=== PATIENT | male | born 1990 | race Caucasian/White ===

== ENCOUNTER 2019-07-30 18:10 | Inpatient (IN) | payer OTHER ==
[~2019-07-30] VITALS: Ht 190.5 cm; Wt 168.3 kg
[2019-07-30 18:12] VITALS: BP 163/108
[2019-07-30] MEDS ORDERED: LISINOPRIL2.5 MG PO (18:33)
[2019-07-30 18:40] LABS: URINE BILIRUBIN NEGATIVE (Negative); URINE BLOOD NEGATIVE (Negative); URINE CLARITY CLEAR; URINE COLOR YELLOW; URINE GLUCOSE-RANDOM* NEGATIVE (Negative); URINE KETONES TRACE (Negative); URINE LEUKOCYTES-REFLEX NEGATIVE (Negative); URINE NITRITE-REFLEX NEGATIVE (Negative); URINE PROTEIN (DIPSTICK) NEGATIVE (Negative); URINE SPECIFIC GRAVITY 1.015 (1.005-1.035)
[2019-07-30 18:56] LABS: HEMATOCRIT 48.8 % (42.0-52.0); HEMOGLOBIN 16.8 gm/dL (14.0-18.0); MCH 33.8 pg (26.0-34.0); MCHC 34.4 g/dL (28.0-37.0); MCV 98.3 fL (80.0-100.0); RBC 4.96 mil/uL (4.50-6.00); RDW 13.5 % (10.5-14.5); WBC 10.9 thou/uL (4.0-11.0)
[2019-07-30 19:13] LABS: CALCIUM 9.4 mg/dL (8.5-10.1); CREATININE 0.7 mg/dL (0.7-1.3); POTASSIUM 4.5 mmol/L (3.5-5.1)
[2019-07-30 19:17] LABS: ALBUMIN 3.9 g/dL (3.4-5.0); TOTAL BILIRUBIN 0.8 mg/dL (0.2-1.0); TOTAL PROTEIN 7.4 g/dL (6.4-8.2)
[2019-07-30 21:37] VITALS: BP 135/70
--- NOTE | 2019-07-30 21:37 | NUR ---
HANDOFF SENT TO CCU
[2019-07-30 22:29] VITALS: BP 135/70
[2019-07-30 22:52] VITALS: BP 144/75
[2019-07-30 22:57] VITALS: BP 144/75
[2019-07-31 04:30] VITALS: BP 147/89
[2019-07-31 04:38] LABS: HEMATOCRIT 41.5 % (42.0-52.0); MCH 34.6 pg (26.0-34.0); MCHC 34.8 g/dL (28.0-37.0); MCV 99.3 fL (80.0-100.0); RBC 4.18 mil/uL (4.50-6.00); RDW 13.5 % (10.5-14.5); WBC 9.4 thou/uL (4.0-11.0)
[2019-07-31 04:40] LABS: HEMOGLOBIN 14.5 gm/dL (14.0-18.0)
[2019-07-31 04:46] LABS: CALCIUM 7.7 mg/dL (8.5-10.1); CREATININE 0.7 mg/dL (0.7-1.3); MAGNESIUM 1.3 mg/dL (1.8-2.4); POTASSIUM 3.5 mmol/L (3.5-5.1)
[2019-07-31 04:54] LABS: ALBUMIN 3.1 g/dL (3.4-5.0); DIRECT BILIRUBIN 0.2 mg/dL (<0.1-0.2); TOTAL BILIRUBIN 0.8 mg/dL (0.2-1.0); TOTAL PROTEIN 5.4 g/dL (6.4-8.2)
[2019-07-31 05:56] LABS: CHOLESTEROL 156 mg/dL (<200); HDL CHOLESTEROL 47 mg/dL (>40); LDL CHOLESTEROL 93 mg/dL (<100); TC:HDL 3.3 Ratio (Not establshd); TRIGLYCERIDE 81 mg/dL (<150); VLDL 16 mg/dL (<40)
[2019-07-31 05:57] LABS: SERUM ASSESSMENT Clear
--- NOTE | 2019-07-31 06:46 | NUR ---
ASSUME CARE 2245. PT BROUGHT TO UNIT BY FAISAL. PT/VITALS STABLE CHRONIC BACK PAIN NOTED WITH MORPHINE FOR PAIN. NO WITHDRAWAL SYMPTOMS MOTED. PT IS A/O X 4 AND ANSWERS QUESTIONS APPROPRIATELY. TOLERATES ACTIVITIES WELL. PT TOLERATES ACTIVITY WELL. ASSESSMENT CHARTED. PROGRESSING WELL WITH POC. PLAN IS TO HYDRATE AND MONITOR FOR WITHDRAWALS. REPLACE ELECTROLYTES AND MANAGE PAIN. WILL CONITUNE TO MONITOR AND FOLLOW WIHT POC. NPO FOR NOW
[2019-07-31 07:21] VITALS: BP 143/80
[2019-07-31 11:59] VITALS: BP 158/87
--- NOTE | 2019-07-31 12:06 | HC ---
[facility] [place] [address] CONSULTATION Name: GUERRERO CRAIN Room #: 204-P ADM IN M.R.#: [id number] Admission: 07/30/19 Attend Phys: Edel Chatman MD Discharge: Date of : 89 Report #: [id number] THIS REPORT FOR: cc: BRANDON - No family physician/PCP BRANDON - No family physician/PCP Chi Braun MD ~ CC: Edel Chatman [facility] physician/PCP GI CONSULTATION HISTORY OF PRESENT ILLNESS: The patient is a very pleasant 29-year-old male who I have been asked to see for further evaluation of pancreatitis. He claims that he had developed significant epigastric and right upper quadrant abdominal pain yesterday, which became unrelenting and progressive. He presented to the Emergency Department with evidence of acute pancreatitis with a lipase of 2785 and significant findings on CT scan as mentioned below. The patient admits to significant alcohol consumption as well as substance abuse well detailed in his admission H and P. PAST MEDICAL HISTORY: Notable for hypertension and tobaccoism, otherwise. FAMILY HISTORY: Otherwise, noncontributory. REVIEW OF SYSTEMS: Negative for weight loss, weakness or fatigue. He denies head, eyes, ears, nose or throat complaints. Denies chest pain, chest palpitation, chest pressure, cough, shortness of breath, wheezing, genitourinary, musculoskeletal or neuropsychiatric complaints. MEDICATION: List is reviewed. PHYSICAL EXAMINATION: GENERAL: The patient is afebrile. VITAL SIGNS: Stable. HEENT: Nonicteric. NECK: No JVD, thyromegaly or bruits. CARDIOVASCULAR: Regular. LUNGS: Clear. ABDOMEN: Soft. He has got right upper quadrant tenderness and some rebound. No stigmata of chronic liver disease. No abnormal masses or bruits. EXTREMITIES: No clubbing, cyanosis or edema. NEUROLOGIC: Grossly intact. RECTAL: Deferred. PERTINENT LABORATORY DATA: Include platelet count 169, white count 9.4, hemoglobin 14.5. Serum chemistry notable for potassium 3.5. ALT 123, AST 61, total bilirubin 0.8. Calcium 7.7, magnesium 1.3, albumin 3.1, total protein [address] [address] CONSULTATION Name: GUERRERO CRAIN FABIAN Room #: 204-P ADM IN .R.#: [id number] Admission: 07/30/19 Attend Phys: Edel Chatman MD Discharge: Date of : 89 Report #: [id number] 5.4. Lipase today 1992. CT scan showing moderate inflammation adjacent to the pancreatic head and proximal duodenum, fluid and edema tracking caudally into the right retroperitoneum. No evidence of necrotic pancreatitis, mild diverticulosis without evidence of diverticulitis. ASSESSMENT: In summary, the patient presents with alcohol-induced acute pancreatitis. It appears that there is no significant complication to the state with a normal vascular bed to the pancreas without evidence of necrotic pancreatitis. He does have significant electrolyte disturbances including hypocalcemia and hypomagnesemia, which should be corrected. From a nutritional standpoint, it appears that he may be deficient as well secondary to substance abuse. I had a long conversation with the patient about the Ins and Outs of alcohol dependence and drug abuse and the durable effects of detox, rehabilitation, and AA. I have also discussed with him the management of acute pancreatitis, which includes bowel rest as well as analgesia. I would prefer Toradol dose and narcotic p.r.n. We will again repeat him once his pain improves and his lipase diminishes. Of course, obese people have higher risk of complications from pancreatitis would have to keep a good eye on him in this regard. He is dedicated to changing his behavior in his life around, especially from an alcohol standpoint and substance abuse standpoint as we discussed. We will follow concurrently. I appreciate the opportunity to participate in the care of this nice young man. <ELECTRONICALLY SIGNED> By: Chi Braun MD 07/31/19 1206 [id number] Chi Braun MD /nt
[2019-07-31 15:44] VITALS: BP 138/82
--- NOTE | 2019-07-31 17:37 | NUR ---
ASSUMED CARE AT SHIFT CHANGE, ALERT AND ORIENTED X4. ASSESSMENT AND CIWA CHARTED. VSS AND DOCUMENTED BP 138-154/80-87. MEDICATED FOR ABD PAIN INDICATED, AND TOLERATING ICE CHIPS WELL. AND WILL CONTINUE WITH POC.
[2019-07-31 19:45] VITALS: BP 153/79
[2019-08-01 00:09] LABS: GLYCOHEMOGLOBIN (HGB A1C) 5.3 % (4.8-5.6)
[2019-08-01 04:45] VITALS: BP 164/68
--- NOTE | 2019-08-01 05:31 | NUR ---
ASSUME CARE 1900. PT/VITALS STABLE. CONSISTENT RUQ ABDOMINAL PAIN INDICATED. TORADOL AND MORPHINE FOR PAIN RELIEF. TOLERATES ACTIVITY WELL. UPAD BRIDGET. SR ON MONITOR. PT STEADY WITH NO WITHDRAWALS NOTED. PT STILL NPO WITH SIPS OF WATER. ASSESMENTS CHARTED. PROGRESSING WELL WITH POC. PLAN IS POSSIBLE DISCHARGE WITHIN 1-2 DAYS. WILL BENEFIT FROM PSYCH CONSULT. WILL CONTINUE TO MONITOR AND FOLLOW WI POC
[2019-08-01 07:44] VITALS: BP 119/65
[2019-08-01 12:00] VITALS: BP 142/77
[2019-08-01 13:24] LABS: HEMATOCRIT 39.7 % (42.0-52.0); HEMOGLOBIN 14.1 gm/dL (14.0-18.0); MCH 34.6 pg (26.0-34.0); MCHC 35.6 g/dL (28.0-37.0); MCV 97.2 fL (80.0-100.0); RBC 4.09 mil/uL (4.50-6.00); RDW 13.2 % (10.5-14.5); WBC 8.3 thou/uL (4.0-11.0)
--- NOTE | 2019-08-01 13:30 | NUR ---
ASSESSMENT DOCUMENTED AND VSS. CONSISTENT ABD PAIN, MEDICATED INDICATED. SR AND ST W/ACTIVITIES, AND OTHER VSS. CLEAR LIQUID DIET TODAY AND PATIENT TOLERATED DIET WELL. PROGRESSING TOWARDS GOAL AND WILL CONTINUE WITH POC.
[2019-08-01 13:40] LABS: ALBUMIN 2.9 g/dL (3.4-5.0); CALCIUM 8.2 mg/dL (8.5-10.1); CREATININE 0.8 mg/dL (0.7-1.3); TOTAL BILIRUBIN 1.4 mg/dL (0.2-1.0)
[2019-08-01 13:42] LABS: POTASSIUM 4.5 mmol/L (3.5-5.1)
[2019-08-01 16:45] VITALS: BP 144/81
[2019-08-01 19:43] VITALS: BP 140/76
[2019-08-02 04:27] VITALS: BP 146/77
--- NOTE | 2019-08-02 06:32 | NUR ---
ASSUME CARE 1900. PT/VITALSS TABLE. NO SIGNS OF WITHDAWALS NOTED. NO DISTRESS NOTED. CONSISTENT RUQ ABDO PAIN/MWDICAED FOR RELIEF NEEDED. TOLERATES ACTIVITY WELL. ASSESSMENT CHARTED.PROGRESSING WELL WITH POC. SR ON MONITOR. PLAN IS A POSSIBLE DISCHARGE TODAY. WOULD BENEFIT FROM A PSYCH REFERRAL. WILL CONTINUE TO MONITOR AND FOLLOW WITH POC
[2019-08-02 08:31] LABS: ABSOLUTE NEUTROPHILS 5.1 thou/uL (1.4-8.2); BASOPHILS 0.4 % (0.0-2.0); EOSINOPHILS 3.1 % (0.0-3.0); HEMATOCRIT 39.4 % (42.0-52.0); HEMOGLOBIN 13.8 gm/dL (14.0-18.0); LYMPHOCYTES 21.9 % (24.0-44.0); MCH 34.2 pg (26.0-34.0); MCV 97.7 fL (80.0-100.0); MONOCYTES 8.2 % (1.0-8.0); PLATELET COUNT 142 thou/uL (150-400); POLYS 66.4 % (36.0-66.0); RBC 4.04 mil/uL (4.50-6.00); RDW 12.9 % (10.5-14.5); WBC 7.6 thou/uL (4.0-11.0)
[2019-08-02 08:32] VITALS: BP 150/85
[2019-08-02 08:46] LABS: ALBUMIN 2.8 g/dL (3.4-5.0); CALCIUM 8.3 mg/dL (8.5-10.1); CREATININE 0.8 mg/dL (0.7-1.3); TOTAL PROTEIN 6.1 g/dL (6.4-8.2)
[2019-08-02 11:35] VITALS: BP 163/86
--- NOTE | 2019-08-02 16:04 | NUR ---
Attempted to call patient multiple times in room unable to reach.
[2019-08-02 16:36] VITALS: BP 163/86
--- NOTE | 2019-08-02 16:49 | NUR ---
Patient admits with pancreatitis. Patient reports in last 2 months increase in alcohol use. Has never been at daily drinker but found himself needing to drink to fall asleep. 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 He reports good family support. Discussed ETOH resources and treatment. Patient reports at this time does not want to commit to anything. He wants to dc from hospital and has plan to f/u with Dr Wilson. He is agreeable for resource numbers to be placed in dc instructions. He reports he has been speaking with sister who is a PA. He wants to discharge and see how he is doing. He has no PCP but his sister has someone she wants him to check with his insurance if in network. Plan home once stable and will place resource info in chart.
[2019-08-02 17:25] VITALS: BP 144/72
--- NOTE | 2019-08-02 18:39 | NUR ---
ASSUMMED PT CARE AT [facility] 0700. PT A&O X4. ASSESSMENT CHARTED. FALL PRECAUTIONS IN PLACE. PT DENIES HAVING CHEST PAIN. PT DENIES HAVING SOB. PT STATED HE HAD ACUTE RUQ ABM PAIN. PT RECEIVED ANALGESICS. PT STATED ANALGESICS HELPED RELIEVE PAIN. PT TRANSFERED TO MED/SURG STATUS. GAVE REPORT TO WILTON BRIONES. ANSELMO STATED UNDERSTANDING AND DENIED HAVING FURTHER QUESTIONS. VITAL SIGNS STABLE. BLOOD SUGARS STABLE. PT COMFORTABLE. PT DENIES HAVING FURTHER CONCERNS. EDUCATED PT AND PT'S FAMILY REGAURDING POC AND RESOURCES. PT STATED UNDERSTANDING AND DENIED HAVING FURTHER QUESTIONS. PT AMBULATES STEADY/INDEPENDENT. PT TOLERATED ADVANCEMENT IN DIET.
[2019-08-02 19:26] VITALS: BP 170/85
[2019-08-03 02:00] VITALS: BP 153/96
--- NOTE | 2019-08-03 03:58 | NUR ---
PATIENT AOX4 MAKES NEEDS KNOWN. PATIENT ON CIWA ATIVAN GIVEN PER ORDER. PAIN CONTROLLED THIS SHIFT. PATIENT IS UP AT BRIDGET. PATIENT IN BED ASLEEP AT THIS TIME BREATHING REGULAR AND UNLABOURED.
[2019-08-03 05:14] VITALS: BP 150/87
[2019-08-03 06:59] VITALS: BP 160/92
[2019-08-03 09:43] VITALS: BP 163/86
[2019-08-03 13:38] VITALS: BP 163/86
--- NOTE | 2019-08-03 13:43 | NUR ---
IT IS ANTICIPATED THAT PT WILL LIKLELY BE MEDICALLY STABLE TO DC HOME THIS DAY. PT HAD BEEN GIVEN INFO FOR FOLLOW UP CARE UPON DC. NO OTHER CM INERVENTION INDICATED. CASE CLOSED.
[2019-08-03] MEDS ORDERED: NORCO 5-325 TA1 EAC1 PO (14:39)
--- NOTE | 2019-08-03 15:00 | NUR ---
Assumed pt care at 7am.Pt in bed resting without c/o at the beginning of shift but later asked for pain shot after assessment.Dr Espinal here, dc order noted.Pt wanted to dc home after lunch.Updates given to pt family.Pt tolerated meds and diet.Dc summary compile and reviewed with pt.Saline lock dc'd.Pt dc home ambulatory accompanied by stage director at 1500.
== END 2019-08-03 14:59 | disposition home or self-care (01) | DRG 438 ==
LOC: ER 18:10 → EROBS 21:21 → 2N 21:21 → 4W 08-02 11:02
PROVIDERS: Internal Medicine Gastroenterology; Nurse Practitioner Family; Student in an Organized Health Care Education/Training Program; ADMIT Internal Medicine; ATTEND Internal Medicine
DX: K85.20 Alcohol induced acute pancreatitis without necrosis or infection (principal); E43 Unspecified severe protein-calorie malnutrition; Z68.42 Body mass index [BMI] 45.0-49.9, adult; F10.229 Alcohol dependence with intoxication, unspecified; Y90.4 Blood alcohol level of 80-99 mg/100 ml; R74.0 Nonspecific elevation of levels of transaminase and lactic acid dehydrogenase [LDH]; I10 Essential (primary) hypertension; F19.11 Other psychoactive substance abuse, in remission; E83.42 Hypomagnesemia; R79.89 Other specified abnormal findings of blood chemistry; K70.0 Alcoholic fatty liver; Z79.899 Other long term (current) drug therapy; Z87.891 Personal history of nicotine dependence
CPT/HCPCS: 10047; 10081

== ENCOUNTER → 2019-08-18 | Outpatient (CLI) | payer OTHER ==
[~2019-08-18] MED LIST: LISINOPRIL2.5 MG PO; NORCO 5-325 TA1 EAC1 PO
== END ==
LOC: LAB 12:14
PROVIDERS: ATTEND Internal Medicine Cardiovascular Disease
DX: Z01.812 Encounter for preprocedural laboratory examination (principal); Z11.59 Encounter for screening for other viral diseases

== ENCOUNTER 2021-03-21 20:10 | Inpatient (IN) | payer OTHER ==
[~2021-03-21] VITALS: Ht 190.5 cm; Wt 163.3 kg
[2021-03-21 20:24] VITALS: BP 178/124
[2021-03-21] MEDS ORDERED: ALLOPURINOL 10100 M3 PO (20:30)
[2021-03-21] MEDS ORDERED: PEPTO-BISMOL262 M1 PO (20:30)
[2021-03-21] MEDS ORDERED: PRILOSEC OTC20 MG PO (20:31)
[2021-03-21 20:45] LABS: HEMATOCRIT 47.4 % (42.0-52.0); HEMOGLOBIN 16.2 gm/dL (14.0-18.0); MCHC 34.3 g/dL (28.0-37.0); MCV 99.1 fL (80.0-100.0); RBC 4.78 mil/uL (4.50-6.00); RDW 12.8 % (10.5-14.5); WBC 11.1 thou/uL (4.0-11.0)
[2021-03-21 20:52] LABS: CALCIUM 8.8 mg/dL (8.5-10.1); CREATININE 0.8 mg/dL (0.7-1.3); POTASSIUM 3.8 mmol/L (3.5-5.1)
[2021-03-21 20:58] LABS: ALBUMIN 3.8 g/dL (3.4-5.0); TOTAL PROTEIN 7.1 g/dL (6.4-8.2)
[2021-03-21 21:05] LABS: URINE BILIRUBIN NEGATIVE (Negative); URINE BLOOD NEGATIVE (Negative); URINE CLARITY CLEAR; URINE COLOR YELLOW; URINE GLUCOSE-RANDOM* NEGATIVE (Negative); URINE KETONES NEGATIVE (Negative); URINE LEUKOCYTES-REFLEX NEGATIVE (Negative); URINE NITRITE-REFLEX NEGATIVE (Negative); URINE PROTEIN (DIPSTICK) NEGATIVE (Negative); URINE SPECIFIC GRAVITY 1.015 (1.005-1.035); URINE UROBILINOGEN 0.2 E.U./dl (0.2-1.0)
[2021-03-21 23:23] VITALS: BP 136/87
[2021-03-22 00:12] LABS: CHOLESTEROL 214 mg/dL (<200); HDL CHOLESTEROL 74 mg/dL (>40); LDL CHOLESTEROL 119 mg/dL (<100); SERUM ASSESSMENT Clear; TC:HDL 2.9 Ratio (Not establshd); TRIGLYCERIDE 109 mg/dL (<150); VLDL 22 mg/dL (<40)
[2021-03-22 00:14] VITALS: BP 155/103
--- NOTE | 2021-03-22 03:09 | NUR ---
PT ADMITTED THIS NOC AND IS A/O X4 AND IS UP AD BRIDGET. RA. BP ELEVATED. C/O PAIN. AFTER PRN PAIN MEDICATION WAS PROVIDED PT BP WNL. CURRENTLY NPO. MOUTH SWABS PROVIDED. FALL PRECAUTIONS IN PLACE, CALL LIGHT IS WITHIN REACH.
[2021-03-22 06:17] LABS: HEMATOCRIT 45.5 % (42.0-52.0); HEMOGLOBIN 15.8 gm/dL (14.0-18.0); MCH 34.4 pg (26.0-34.0); MCHC 34.6 g/dL (28.0-37.0); MCV 99.3 fL (80.0-100.0); RBC 4.59 mil/uL (4.50-6.00); RDW 12.6 % (10.5-14.5); WBC 11.6 thou/uL (4.0-11.0)
[2021-03-22 06:42] LABS: CALCIUM 8.9 mg/dL (8.5-10.1); CREATININE 0.7 mg/dL (0.7-1.3); POTASSIUM 4.1 mmol/L (3.5-5.1)
[2021-03-22 08:01] VITALS: BP 162/99
--- NOTE | 2021-03-22 10:22 | NUR ---
Assumed care of pt at 0700. Pt a&ox4. Pt states his pain seems worse today. Provider aware. New orders noted. IVF infusing. Up ad zach. Call light within reach. Will continue to monitor.
--- NOTE | 2021-03-22 15:23 | NUR ---
Met with patient who admits with pancreatitis. Patient reports he was sober for 6 months. He then started to drink at events but then began daily. He lives with parents who are supportive. He is independent with adls. 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 He has been looking into outpatient ETOH treatment programs. Gave patient resources for some programs. patient plans to dc home once stable. he is not planning inpatient treatment at this time. he has never participated in AA. Casemgt following for dc planning.
[2021-03-22 17:07] VITALS: BP 154/100
[2021-03-22 20:18] VITALS: BP 160/97
[2021-03-23 04:06] LABS: HAV IgM AB (ANTI-HAV IgM) Negative (Negative); HEPATITIS B SURFACE AG Negative (Negative); HEPATITIS C VIRUS AB <0.1 (0.0-0.9)
[2021-03-23 05:07] LABS: GLYCOHEMOGLOBIN (HGB A1C) 6.1 % (4.8-5.6)
[2021-03-23 05:20] LABS: ALBUMIN 3.1 g/dL (3.4-5.0); CALCIUM 8.5 mg/dL (8.5-10.1); CREATININE 0.7 mg/dL (0.7-1.3); MAGNESIUM 1.4 mg/dL (1.8-2.4); POTASSIUM 3.8 mmol/L (3.5-5.1); TOTAL BILIRUBIN 1.8 mg/dL (0.2-1.0); TOTAL PROTEIN 6.5 g/dL (6.4-8.2)
[2021-03-23 05:27] LABS: ABSOLUTE NEUTROPHILS 7.4 thou/uL (1.4-8.2); BASOPHILS 0.3 % (0.0-2.0); EOSINOPHILS 0.8 % (0.0-3.0); HEMATOCRIT 42.1 % (42.0-52.0); HEMOGLOBIN 14.5 gm/dL (14.0-18.0); LYMPHOCYTES 8.9 % (24.0-44.0); MCH 34.8 pg (26.0-34.0); MCHC 34.5 g/dL (28.0-37.0); MCV 100.8 fL (80.0-100.0); MONOCYTES 6.6 % (1.0-8.0); PLATELET COUNT 138 thou/uL (150-400); POLYS 83.4 % (36.0-66.0); RBC 4.18 mil/uL (4.50-6.00); RDW 12.7 % (10.5-14.5); WBC 8.9 thou/uL (4.0-11.0)
[2021-03-23 07:04] VITALS: BP 145/87
--- NOTE | 2021-03-23 07:19 | NUR ---
Pt. rested quietly at intervals during the night when checked on during frequent rounds. He has been given pain med for c/o abdominal pain (see emar) with some relief noted. No c/o nausea.
[2021-03-23 15:46] VITALS: BP 138/77
--- NOTE | 2021-03-23 19:25 | NUR ---
Assumed care of patient at 0700. Lung sounds clear, heart tones normal. No edema. Patient ambulatory without assistance, bathroom privaleges. Urinal used appropriately. Abdominal pain reported, decreased with rest and medications. No concerns at this time.
[2021-03-23 22:00] VITALS: BP 125/82
[2021-03-24 06:40] LABS: CALCIUM 8.5 mg/dL (8.5-10.1); CREATININE 0.8 mg/dL (0.7-1.3); POTASSIUM 3.5 mmol/L (3.5-5.1); TOTAL BILIRUBIN 1.4 mg/dL (0.2-1.0); TOTAL PROTEIN 6.7 g/dL (6.4-8.2)
[2021-03-24 08:17] VITALS: BP 130/74
--- NOTE | 2021-03-24 08:50 | NUR ---
RECEIVED CARE OF THIS PATIENT AT 1900. PATIENT ALERT AND ORIENTED X4. UP AD BRIDGET. IV PATENT IN TWIN WITH FLUIDS INFUSING. C/O PAIN, MED GIVEN. SLEPT MOST OF NIGHT.
--- NOTE | 2021-03-24 11:09 | NUR ---
A/O X 4, ROOM AIR, AD BRIDGET, LEFT UPPER ARM PIV WITH NS INFUSING @ 80 MLS/HR, NO NAUSEA NOTED, RIGHT FLANK PAIN 5/10 PRN OXYCODONE GIVEN, LOOVENOX DVT PPX, DIET ADVANCED TO SOFT.
[2021-03-24 16:04] VITALS: BP 132/89
[2021-03-24 20:43] VITALS: BP 132/80
--- NOTE | 2021-03-25 04:23 | NUR ---
RECEIVED CARE OF THIS PATIENT AT 1900. PATIENT ALERT AND ORIENTED X4. UP AD BRIDGET. DENIES N/V. STATES TOLERATED DINNER. C/OPAIN, MED GIVEN. SLEPT OFF AND ON DURING NIGHT.
[2021-03-25 07:45] VITALS: BP 150/89
[2021-03-25] MEDS ORDERED: OXYCODONE HCL 55 MG PO (10:42)
[2021-03-25 10:53] VITALS: BP 132/80
--- NOTE | 2021-03-25 11:19 | NUR ---
ASSUMED CARE OF PT AT 0700, VVS. AFEBRILE NO COMPLAINTS. REQUESTED PAIN MEDICATION FOR RIGHT ANKLE. PT ALERT AND ORIENTED X4. ATE MAJORITY OF BREAKFAST. IV DISCONTINUED FOR DISCHARGE. DRINKNIG ADEQUATE FLUIDS. GIVEN HARD COPY OF SCRIPT BEFORE DISCHARGE.
== END 2021-03-25 11:20 | disposition home or self-care (01) | DRG 439 ==
LOC: ER 20:10 → EROBS 22:55 → 4S 22:55
PROVIDERS: Nurse Practitioner; Nurse Practitioner Family; ADMIT Pediatrics; ATTEND Pediatrics
DX: K85.20 Alcohol induced acute pancreatitis without necrosis or infection (principal); Z68.42 Body mass index [BMI] 45.0-49.9, adult; Z20.822 Contact with and (suspected) exposure to COVID-19; F10.10 Alcohol abuse, uncomplicated; K86.0 Alcohol-induced chronic pancreatitis; E66.01 Morbid (severe) obesity due to excess calories; I10 Essential (primary) hypertension; E78.5 Hyperlipidemia, unspecified; G47.33 Obstructive sleep apnea (adult) (pediatric); K21.9 Gastro-esophageal reflux disease without esophagitis; M10.9 Gout, unspecified; R74.01 Elevation of levels of liver transaminase levels
CPT/HCPCS: 10195